=== PATIENT | male | born 1975 | race African-American/Black ===

== ENCOUNTER → 2017-08-15 | Outpatient (CLI) | payer BC, OTHER ==
--- NOTE | ~2017-08-15 | 2DMMODE ---
[facility] [address] [place] [address] 2 D/M-MODE ECHOCARDIOGRAM Name: MIRTA MARTINEZ III Room #: REG [facility]#: [id number] Admission: 08/15/17 Attend Phys: Joce Rodriguez Discharge: Date of : 75 Date of Service: 08/15/17 1536 Report #: [id number] THIS REPORT FOR: //name// APPROVED REPORT Study performed: 08/15/2017 14:46:10 EXAM: Comprehensive 2D, Doppler, and color-flow Echocardiogram Patient Location: Out-Patient Status: routine BSA: 2.37 HR: 65 bpm BP: 139/90 mmHg Rhythm: NSR Other Information Study Quality: Adequate Indications HTN, palpitations. 2D Dimensions RVDd: 40.40 mm LVEF(%): 50.07 (>50%) IVSd: 12.32 (7-11mm) LVOT Diam: 19.66 (18-24mm) LVDd: 40.60 mm PWd: 11.76 (7-11mm) Ascending Ao: 29.35 (22-36mm) LVDs: 30.42 (25-40mm) Aortic Root: 31.33 mm Manjarrez's LVEF: 50.07 % Volumes Left Atrial Volume (Systole) Single Plane 4CH: 33.68 mL Single Plane 2CH: 58.29 mL LA ESV Index: 21.00 mL/m2 Aortic Valve AoV Peak Osman.: 1.31 m/s AO Peak Gr.: 6.91 mmHg LVOT Max P.41 mmHg LVOT Max V: 0.92 m/s MILES Vmax: 2.13 cm2 Mitral Valve E/A Ratio: 1.6 MV Decel. Time: 174.21 ms [facility] [employer] [place] [address] 2 D/M-MODE ECHOCARDIOGRAM Name: MIRTA MARTINEZ III Room #: [facility]#: [id number] Admission: 08/15/17 Attend Phys: Joce Rodriguez Discharge: Date of : 75 Date of Service: 08/15/17 1536 Report #: [id number] MV E Max Osman.: 0.74 m/s MV A Osman.: 0.46 m/s MV PHT: 50.52 ms IVRT: 87.66 ms Pulmonary Valve PV Peak Osman.: 1.01 m/s PV Peak Gr.: 4.08 mmHg Pulmonary Vein P Vein S: 0.50 m/s P Vein D: 0.52 m/s P Vein S/D Ratio: 0.96 Tricuspid Valve TR Peak Osman.: 2.36 m/s RAP Estimate: 5.00 mmHg TR Peak Gr.: 22.33 mmHg PA Pressure: 27.00 mmHg Left Ventricle The left ventricle is normal size. There is normal LV segmental wall motion. Mild concentric left ventricular hypertrophy. Left ventricular systolic function is normal. LVEF is 55-60%. The left ventricular diastolic function is normal. Right Ventricle The right ventricle is normal size. The right ventricular systolic function is normal. Atria The left atrium size is normal. The right atrium size is normal. Aortic Valve The aortic valve is normal in structure. No aortic regurgitation is present. There is no aortic valvular stenosis. Mitral Valve The mitral valve is normal in structure. Trace mitral regurgitation. Tricuspid Valve The tricuspid valve is normal in structure. Mild to moderate tricuspid regurgitation. Estimated PAP is 25-30mmHg. Pulmonic Valve The pulmonary valve is normal in structure. Trace pulmonic [facility] [address] [place] [address] 2 D/M-MODE ECHOCARDIOGRAM Name: MIRTA MARTINEZ III Room #: REG [place]#: [id number] Admission: 08/15/17 [facility]: Date of : 75 Date of Service: 08/15/17 1536 Report #: [id number] regurgitation. Great Vessels The aortic root is normal in size. The ascending aorta is normal in size. IVC is normal in size and collapses >50% with inspiration. Pericardium There is no pericardial effusion. <Conclusion> The left ventricle is normal size. LVEF is 55-60%. The aortic valve is normal in structure. The mitral valve is normal in structure. Trace mitral regurgitation. The tricuspid valve is normal in structure. Mild to moderate tricuspid regurgitation. Estimated PAP is 25-30mmHg. The pulmonary valve is normal in structure. Trace pulmonic regurgitation. There is no pericardial effusion. <ELECTRONICALLY SIGNED> By: Elijah Baker MD 08/15/17 1536 1536 1536 Elijah Baker MD /INF
== END ==
LOC: CV 13:12
DX: I10 Essential (primary) hypertension (principal); I07.1 Rheumatic tricuspid insufficiency; I51.7 Cardiomegaly; R00.2 Palpitations